=== PATIENT | female | born 1955 | race Caucasian/White ===

== ENCOUNTER → 2019-05-16 13:22 | Outpatient (CLI) | payer OTHER, SELFPAY | PROVIDERS: PCP Family Medicine | DX: Z23 Encounter for immunization (principal) | CPT/HCPCS: 90471; 90686 ==

== ENCOUNTER → 2019-09-27 14:56 | Outpatient (CLI) | payer OTHER, SELFPAY ==
--- NOTE | 2019-09-27 | DI.RAD.S_ITS ---
PROCEDURE: XR HAND RT MIN 3V INDICATIONS: RT HAND PAIN TECHNIQUE: 3 views of the hand(s) acquired. COMPARISON: None. FINDINGS: Bones: No fractures or dislocations. Carpal bones are normally aligned. No suspicious bony lesions. Mild diffuse joint narrowing with periarticular osteophyte formation. No definitive bone erosion. Soft tissues: No suspicious soft tissue calcifications. IMPRESSION: Diffuse osteoarthritic changes. Dictated by: Matteo Lunsford [facility] Interpreted: Víctor Olguin MD on 09/27/2019 at 16:14 Approved by: Víctor Olguin M.D. on 09/27/2019 at 16:29
== END ==
PROVIDERS: PCP Family Medicine; Referring Provider Family Medicine; Visit Provider Family Medicine
DX: M79.641 Pain in right hand (principal); M25.741 Osteophyte, right hand
CPT/HCPCS: 73130

== ENCOUNTER → 2020-05-23 09:10 | Outpatient (CLI) | payer OTHER, SELFPAY ==
--- NOTE | 2020-05-23 | DI.MG.S_ITS ---
BILATERAL DIGITAL SCREENING MAMMOGRAM 3D/2D WITH CAD: 05/23/2020 CLINICAL: Routine screening. Comparison is made to exams dated: 10/22/2013 mammogram, 10/13/2006 mammogram, and 07/14/2004 mammogram - [facility]. There are scattered fibroglandular elements in both breasts. Current study was also evaluated with a Computer Aided Detection (CAD) system. There is possible irregular architectural distortion in the left breast middle depth superior region seen on the mediolateral oblique view only. This is more prominent. No other significant masses, calcifications, or other findings are seen in either breast. IMPRESSION: INCOMPLETE: NEEDS ADDITIONAL IMAGING EVALUATION The possible irregular architectural distortion in the left breast is indeterminate. Additional views with possible ultrasound are recommended. This exam was interpreted at Station ID: [id number]. NOTE: For mammograms, a report in lay terms will be sent to the patient. Approximately 15% of breast malignancies will not be visualized mammographically. In the management of a palpable breast mass, a negative mammogram must not discourage biopsy of a clinically suspicious lesion. Electronically Signed By: Tima rodrigues/emilie:05/23/2020 09:35:39 letter sent: Additional Imaging Needed ACR BI-RADS Category 0: Incomplete 3340F
== END ==
PROVIDERS: PCP Family Medicine; Referring Provider Family Medicine; Visit Provider Family Medicine
DX: Z12.31 Encounter for screening mammogram for malignant neoplasm of breast (principal)
CPT/HCPCS: 77063; 77067

== ENCOUNTER → 2020-06-15 14:04 | Outpatient (CLI) | payer OTHER, SELFPAY ==
--- NOTE | 2020-06-15 14:07 | DI.MG.S_ITS ---
UNILATERAL LEFT DIGITAL DIAGNOSTIC MAMMOGRAM 3D/2D WITH ADDITIONAL VIEWS: 06/15/2020 CLINICAL: Additional evaluation requested from prior study. Comparison is made to exams dated: 05/23/2020 mammogram, 10/22/2013 mammogram, and 10/13/2006 mammogram - [facility]. There are scattered fibroglandular elements in left breast. With focal spot compression, and additional views, the area of architectural distortion seen in the left breast in the upper outer quadrant seen on screening mammography resolves. No significant masses, calcifications, or other findings are seen in the breast. IMPRESSION: NEGATIVE Resolution of screening mammography abnormality with additional views. There is no mammographic evidence of malignancy. Return to annual mammogram screening schedule is recommended. Findings and recommendations were conveyed to the patient at time of exam. This exam was interpreted at Station ID: [id number]. NOTE: For mammograms, a report in lay terms will be sent to the patient. Approximately 15% of breast malignancies will not be visualized mammographically. In the management of a palpable breast mass, a negative mammogram must not discourage biopsy of a clinically suspicious lesion. Electronically Signed By: Lilliam etienne/:06/15/2020 14:39:22 letter sent: Normal Exam ACR BI-RADS Category 1: Negative 3341F
== END ==
PROVIDERS: PCP Family Medicine; Referring Provider Family Medicine; Visit Provider Family Medicine
DX: R92.8 Other abnormal and inconclusive findings on diagnostic imaging of breast (principal)
CPT/HCPCS: 77065; G0279

== ENCOUNTER → 2020-09-10 12:17 | Outpatient (CLI) | payer OTHER, SELFPAY ==
[2020-09-10 12:59] LABS: COVID19 -Nasal RAPID Negative (Negative)
== END ==
PROVIDERS: Visit Provider Nurse Practitioner
DX: Z20.822 Contact with and (suspected) exposure to COVID-19 (principal)
CPT/HCPCS: 87635

== ENCOUNTER 2020-09-11 13:27 | Day surgery (SDC) | payer OTHER, SELFPAY ==
[2020-09-11] VITALS (11 sets, daily range): BP systolic 124–160; BP diastolic 73–93; PULSE 62–82; RESP 12–26; TEMP 36.2–36.6; O2SAT 95–98
--- NOTE | 2020-09-11 | PATH_ITS ---
[facility] Accession Number: [id number] . 01 Material submitted: . sigmoid colon - SIGMOID COLON POLYP 6MM . 02 Diagnosis: Sigmoid Colon, Polyp 6 mm, Biopsy: Tubular adenoma. MRV 09/15/2020 1339 Local . 02 Electronically signed: . Deepali Staton MD, Pathologist NPI- [id number] . 01 Gross description: . SIGMOID COLON POLYP 6MM: Received in formalin are 2 fragment(s) of garcia, soft tissue measuring 0.5 x 0.3 x 0.2 cm to 0.3 x 0.3 x 0.2 cm submitted entirely in 1 cassette(s) /QBJ 09/12/2020 0742 Local . 02 Pathologist provided ICD-10: D12.5 . 02 CPT . 380850 Performed at: 01 [facility] [address], [place], [place] [id number] MD Darinel Joel MD Phone: [phone] Performed at: 02 [facility] [place] [address] [place], [place] [id number] MD Deepali Staton MD Phone: [phone]
--- NOTE | 2020-09-11 11:56 | PM.HP.1 ---
History of Present Illness History of Present Illness Date Patient Seen: 09/11/20 Chief complaint: SDC Narrative: 65 Years Old Female seen today for consideration of a screening colonoscopy. She has never had a colonoscopy. There have been no lower GI symptoms suggesting disease such as change in bowel habits, bleeding, abdominal pain or anemia. There's been no family history of colon cancer or colon polyps. Overall health issues have been stable, including no major cardiac events for at least 6 weeks. Past Medical History: Neoplasm of unspecified behavior; bone, soft tissue & skin SPRAIN/STRAIN, FINGER IP JOINT, SHOULDER STRAIN, INITIAL ENCOUNTER SITUATIONAL STRESS Elbow pain, left HYPERTENSION Past Surgical History: Hysterectomy + right oopherectomy (1996) Cholecystectomy (01/1998) Family History: No colon cancer or colon polyps. Social History: Reviewed history from 08/29/2016 and no changes required: Marital Status: Children: Occupation: Sales Representative [employer] Household Members: Education: Alcohol drinks/day: 1/day Patient History Medical History (Updated 07/04/18 @ 10:43 by Mayr James) Fibroids (~1997) Hypertension Surgical History (Updated 07/04/18 @ 10:43 by Mary James) Anesthesia History of cholecystectomy (~1995) History of gynecologic surgery (1997) Status post laparoscopy Family & Social History Family History (Updated 07/04/18 @ 10:44 by Mary James) Father Hypertension Stroke Mother Hypertension Sister Hypertension Meds Home Medications and Allergies Home Medications Medication Instructions Recorded Confirmed Type Lactobacillus acidophilus 10,000 mmu cells PO DAILY 09/11/20 09/11/20 History [Probiotic] atenolol 25 mg PO DAILY 09/11/20 09/11/20 History lisinopril-hydrochlorothiazide 10 tab PO DAILY 09/11/20 09/11/20 History Allergies Allergy/AdvReac Type Severity Reaction Status Date / Time codeine [CODEINE] Allergy Severe Nausea Verified 09/11/20 13:39 Review of Systems Review of Systems ROS: Yes All systems reviewed with the patient and are negative except as otherwise documented Exam Narrative Exam Narrative: GENERAL: Alert and oriented, appearing stated age and in no acute distress. HEENT: Head normocephalic/atraumatic. LUNGS: Clear to ausculation bilaterally, no wheezes, rhonchi or rales. CV: Normal S1 and S2 with regular rate and rhythm, no audible murmurs, rubs or gallops. ABDOMEN: Soft, non-tender, non-distended, no organomegaly. Positive bowel sounds. EXTREMITIES: No clubbing, cyanosis, or edema. NEURO: Cranial nerves II through XII grossly intact, no focal deficits. PSYCH: Alert and oriented x 3. SKIN: No concerning lesions. Assessment & Plan Assessment & Plan narrative: 1. Screening for colon cancer Plan for colonoscopy. The nature and character of the procedure as well as anticipated results were discussed. The possibility of not completing the procedure was also discussed. Possible complications including aspiration pneumonia, bleeding, perforation and reaction to medications either for sedation or preparation and missed lesions were discussed. Questions were answered and proceeding to the colonoscopy was elected. Informed consent signed. I sincerely appreciate the referral allowing me to participate in this patient's care. Please contact me with any questions or concerns.
--- NOTE | 2020-09-11 11:57 | PM.OP.ENDO ---
Operative Date/Time/Diagnoses Date of procedure: 09/11/20 Procedure Notes SCOAP/Timeout: 2:47 p.m. Procedure in detail: ENDOSCOPIST: Ilana Patton MD Sedation RN: Cindi Rice RN Sedation start time: 2:40 p.m. Sedation end time: 3:20 p.m. PROCEDURE: Colonoscopy with biopsy INDICATIONS: 1. Screening for colon cancer MEDICATION: Levsin 0.125 mg sublingual, incremental doses of Versed and fentanyl until appropriate level sedation achieved. Narcan 0.2 mg at 3:04 p.m. with good effect. ASA CLASS: 2 CECAL WITHDRAWAL TIME: 13 minutes COMPLICATIONS: None. EXTENT OF PROCEDURE: Cecum. QUALITY OF PREP: Good with portions of liquid stool. PROCEDURE: Prior to insertion of the colonoscope, a digital rectal examination was accomplished with circumferential palpation of the distal rectal mucosa without significant findings being noted. The high-definition colonoscope was passed into the rectum in the usual fashion and advanced over to the cecum without difficulty. The ileocecal valve, appendiceal stoma, and medial wall all could be inspected and no abnormalities were seen. ASCENDING COLON: As the colonoscope was withdrawn, care was taken to expose and inspect the haustral folds and no abnormalities were seen. HEPATIC FLEXURE: Normal, no polyps, diverticula or other abnormalities. TRANSVERSE COLON: Normal, no polyps, diverticula or other abnormalities. DESCENDING COLON: Normal, no polyps, diverticula or other abnormalities. SIGMOID COLON: 6 mm polyp removed with cold biopsy forceps, hemoclip placed with excellent hemostasis. Otherwise, no diverticula or other abnormalities. RECTUM: Normal. J maneuver was produced. There was no significant perianal disease. The J maneuver was broken. The remainder of the rectum was inspected and there was no external hemorrhoid disease. The scope was withdrawn. IMPRESSION: 1. Sigmoid polyp x1, 6 mm, removed with cold biopsy forceps, hemoclip placed x1 PLAN: 1. Follow-up in clinic status post pathology results. The possibility of a missed lesion including a malignancy has been discussed with the patient previously. Potential alarm symptoms have been discussed and should be reported immediately.
[2020-09-11] MEDS: HYOSCYAMINE 0.125 MG TABLET PO (13:55)
[2020-09-11] MEDS: LACTATED RINGERS 1,000 ML 200 ML IV (14:05)
[2020-09-11] MEDS: fentaNYL 250 MCG/5 ML INJ IV (14:58)
[2020-09-11] MEDS: MIDAZOLAM 5 MG/5 ML VIAL IV (15:00)
[2020-09-11] MEDS: NALOXONE 1 MG/ML SYRINGE 2 MG IV (15:04)
--- NOTE | 2020-09-11 15:33 | SUR.PHASEI ---
Notified patient's of the need to hold patient until 5:30 p.m. due to the administration of narcan during the procedure. Assured that patient was in no distress and that procedure went well. V/U. Will notify closer to 5:30 for discharge.
--- NOTE | 2020-09-11 17:14 | SUR.PHASEII ---
Pt awake and alert. VSS. No resp depression noted 2 hours post narcan administration.
== END 2020-09-11 17:10 | disposition home or self-care (01) ==
PROVIDERS: Referring Provider Student in an Organized Health Care Education/Training Program; Visit Provider Student in an Organized Health Care Education/Training Program
PROC: 0DJD8ZZ Inspection of Lower Intestinal Tract, Via Natural or Artificial Opening Endoscopic (ICD-10-PCS; CPT 45378; principal; 2020-09-11 14:30)
DX: Z12.11 Encounter for screening for malignant neoplasm of colon (principal); I10 Essential (primary) hypertension; D12.5 Benign neoplasm of sigmoid colon
CPT/HCPCS: 45380; 45382; J2250; J2310; J3010

== ENCOUNTER 2022-01-21 20:22 | Emergency (ER) | payer OTHER, SELFPAY ==
[2022-01-21 20:38] VITALS: BP 188/89; PULSE 90; RESP 16; TEMP 36.8; O2SAT 97; BMI 31.5
[2022-01-21 20:48] LABS: Appearance Urine UA CLOUDY; Bilirubin Urine UA NEGATIVE (NEGATIVE); Color Urine UA RED; Glucose Urine UA NEGATIVE (Negative); Ketones Urine UA NEGATIVE (NEGATIVE); Leukocyte Esterase Urine UA 1+ (NEGATIVE); Nitrite Urine UA NEGATIVE (Negative); Occult Blood Urine UA 3+ (Negative); Protein Urine UA 1+ (Negative); Urobilinogen Urine UA 0.2 E.U./dL (0.2)
[2022-01-21 20:54] LABS: Bacteria Urine Moderate (10-30); Culture Indicated Urine Specimen Cultured; RBC Urine >100/HPF (0-5/HPF); Squamous Epithelial Cell Urine None Seen (0-5/HPF); WBC Urine 5-10/HPF (0-5/HPF)
--- NOTE | 2022-01-21 21:29 | DI.CT.S_ITS ---
PROCEDURE: CT KIDNEY URETER BLADDER (KUB) INDICATIONS: R flank pain eval for stone TECHNIQUE: Axial sections were acquired from the lung bases to the pubic symphysis. Coronal and sagittal reformats were performed. For radiation dose reduction, the following was used: automated exposure control, adjustment of mA and/or kV according to patient size. COMPARISON: [facility], CT, ABDOMEN W&WO CONTRAST, 06/05/2012, 11:10. FINDINGS: Image quality: Excellent. Lung bases: There is minimal subpleural scarring medially in the right lower lobe. Heart: Heart is normal in size. URINARY: Right Kidney and Ureter: There is an obstructing urinary stone measuring up to 0.6 cm within the mid right ureter with attenuation values of approximately 400-500 Hounsfield units. There is associated moderate right hydroureteronephrosis with minimal perinephric stranding. There are multiple, at least 5 additional nonobstructing stones within the right kidney with the largest measuring up to 0.7 cm. This demonstrates attenuation values of approximately 700-800 Hounsfield units. Left Kidney and Ureter: There are a few, approximately 4-5, nonobstructing left renal stones with the largest measuring up to approximately 0.3 cm. No hydronephrosis. No hydroureter. Bladder: Normal wall thickness. No stones. ABDOMEN: Liver: Noncontrast evaluation of the liver demonstrates 2 hypoattenuating mass lesions, measuring 3.0 x 3.0 cm in the right hepatic lobe and 2.6 x 2.5 cm in the left hepatic lobe. Gallbladder: Surgically absent. Biliary ducts: No biliary ductal dilatation. Pancreas: Unremarkable. Spleen: Normal in size. Adrenal Glands: No adrenal nodules. Stomach and Bowel: Stomach, small bowel loops, and colon are normal in caliber and wall thickness. No evidence of appendicitis. Peritoneum: No abnormal intraperitoneal fluid. No free air. Ventral Wall: No hernia. Abdominal Nodes: No retroperitoneal or mesenteric adenopathy by size criteria. Vessels: Aorta and inferior vena cava are normal in size. PELVIS: Pelvic Organs: Uterus is surgically absent. Pelvic Nodes: No enlarged lymph nodes. Miscellaneous: No inguinal hernias identified. Bones: Visualized osseous structures demonstrate no suspicious focal lesions. IMPRESSION: 1. Obstructing urinary stone in the mid right ureter with associated moderate right hydroureteronephrosis. 2. Demonstration of 2 hepatic mass lesions which appear similar in size compared to the prior CT which demonstrated findings consistent with cavernous hemangiomas. 3. Additional bilateral nonobstructing renal stones as described. Dictated by: Darinel Maradiaga M.D. on 01/21/2022 at 22:17 Approved by: Darinel Maradiaga M.D. on 01/21/2022 at 22:25
--- NOTE | 2022-01-21 21:29 | ED.BACK ---
HPI - Back Pain/Injury General Chief Complaint: Back Pain/Injury Stated Complaint: Lower right ABD pain Time Seen by Provider: 01/21/22 21:28 Source: patient Mode of arrival: Ambulatory Limitations: no limitations History of Present Illness HPI Narrative: Patient is a 66-year-old female who is here for evaluation of right-sided flank pain and right lower quadrant pain. He has had off and on discomfort in the right flank for the past several weeks. She states that over the past 24 hours things have gotten worse. No change with urination. No change with palpation. No history of kidney stones. No change in bowel habits. No skin rashes. No fevers. Related Data Home Medications Medication Instructions Recorded Confirmed Lactobacillus acidophilus 10 10,000 mmu cells PO DAILY 09/11/20 09/11/20 billion cell capsule (Probiotic) atenolol 25 mg tablet 25 mg PO DAILY 09/11/20 09/11/20 lisinopril 10 10 tab PO DAILY 09/11/20 09/11/20 mg-hydrochlorothiazide 12.5 mg tablet Previous Rx's Medication Instructions Recorded hydrocodone 5 mg-acetaminophen 325 1 tab PO Q4-6H PRN pain #14 tabs 01/21/22 mg tablet ondansetron 4 mg disintegrating 4 mg PO Q6H PRN nausea and 01/21/22 tablet vomiting #14 tabs tamsulosin 0.4 mg capsule (Flomax) 0.4 mg PO DAILY #14 caps 01/21/22 Allergies Allergy/AdvReac Type Severity Reaction Status Date / Time codeine [CODEINE] Allergy Severe Nausea Verified 09/11/20 13:39 Review of Systems Constitutional Constitutional: Reports system reviewed and no additional complaints, except as documented Gastrointestinal Gastrointestinal: Reports system reviewed and no additional complaints, except as documented Genitourinary Genitourinary: Reports system reviewed and no additional complaints, except as documented Integumentary/Breasts Skin/Breast: Reports system reviewed and no additional complaints, except as documented Neurologic Neurologic: Reports system reviewed and no additional complaints, except as documented Hematologic/Lymphatic Hematologic/Lymphatic: Reports system reviewed and no additional complaints, except as documented Patient History Medical History Fibroids (~1997) Hypertension Surgical History (Updated 07/04/18 @ 10:43 by Mary James) Anesthesia History of cholecystectomy (~1995) History of gynecologic surgery (1997) Status post laparoscopy Family History (Updated 07/04/18 @ 10:44 by Mary James) Father Hypertension Stroke Mother Hypertension Sister Hypertension Social History household members: spouse Smoking Status: Never smoker Smoking Status: Never smoker alcohol intake frequency: a few times a week Substance Use Type: does not use Exam Initial Vital Signs Initial Vital Signs: Vital Signs Temperature 98.3 F 01/21/22 20:38 Pulse Rate 90 01/21/22 20:38 Respiratory Rate 16 01/21/22 20:38 Blood Pressure 188/89 H 01/21/22 20:38 Pulse Oximetry 97 01/21/22 20:38 Oxygen Delivery Method 01/21/22 20:38 Const General: cooperative and healthy appearing HENMT Head: normal to inspection Resp Effort & Inspection: normal respiratory effort Cardio Rate: regular rate GI Inspection: normal to inspection Back/Spine/Pelvis Back: No CVA tenderness Skin General: no rashes or lesions noted Neuro General: patient alert, patient awake and moves all extremities Extrem General: normal to inspection Psych Appearance: grossly normal Course Orders Ordered: ED Orders 01/21/22 20:30 Urinalysis and Microscopic Stat Urine Culture Stat 01/21/22 20:45 Basic Metabolic Panel Stat Complete Blood Count AUTO DIFF Stat 01/21/22 21:29 CT kidney ureter bladder (KUB) Stat Discontinued Medications Hydrocodone Bitart/Acetaminophen (Hydrocodone/Acet 5/325 Prepack) 1 bottle MISC SEEINSTR ONE Stop: 01/21/22 23:16 Last Admin: 01/21/22 23:28 Dose: 1 bottle Documented By: AT Ketorolac Tromethamine (Ketorolac 30 Mg/Ml Vial) 30 mg IV NOW ONE Stop: 01/21/22 21:40 Last Admin: 01/21/22 21:51 Dose: 30 mg Documented By: AT Ondansetron HCl (Ondansetron 4 Mg Odt Prepack) 1 bottle MISC SEEINSTR ONE Stop: 01/21/22 23:16 Last Admin: 01/21/22 23:28 Dose: 1 bottle Documented By: AT Tamsulosin HCl (Tamsulosin 0.4 Mg Capsule) 0.4 mg PO NOW ONE Stop: 01/21/22 23:16 Last Admin: 01/21/22 23:28 Dose: 0.4 mg Documented By: AT Vital Signs Vital signs: Vital Signs - 8 hr 01/21/22 20:38 01/21/22 22:14 Temperature 98.3 F Pulse Rate 90 75 Respiratory Rate 16 18 Blood Pressure 188/89 H 160/89 H Pulse Oximetry 97 99 Oxygen Delivery Method Room Air Room Air MDM - Back Pain/Injury Lab Data Attestation: I reviewed the patient's lab results. Result diagrams: 01/21/22 20:45 01/21/22 20:45 Labs: Lab Results 01/21/22 01/21/22 01/21/22 Range/Units 20:30 20:45 20:45 WBC 9.1 (4.5-11.0) X10^3/uL RBC 4.17 (4.0-5.2) X10^6/uL Hgb 12.6 (12.0-16.0) g/dL Hct 37.4 (36-46) % MCV 89.7 (80-100) fL MCH 30.3 (26-34) PG MCHC 33.8 (30-36) % RDW 12.6 (11.6-14.8) % Plt Count 261 (150-400) X10^3/uL Neut % (Auto) 74.2 (50-75) % Lymph % (Auto) 16.3 L (25-40) % [place] % (Auto) 6.9 (3-14) % Eos % (Auto) 2.1 (2-4) % Baso % (Auto) 0.5 (0-2) % Neut # (Auto) 6700 (4789-4225) /uL Lymph # (Auto) 1500 (7478-4711) /uL [place] # (Auto) 600 (0-900) /uL Eos # (Auto) 200 (0-450) /uL Baso # (Auto) 0 (0-100) /uL Sodium 136 L (137-145) mmol/L Potassium 3.8 (3.4-5.1) mmol/L Chloride 101 (98-107) mmol/L Carbon Dioxide 28 (22-32) mmol/L BUN 22 H (7-17) mg/dL Creatinine 0.56 (0.52-1.04) mg/dL Estimated GFR > 60 (>60) mL/min BUN/Creatinine Ratio 39.3 H (6-22) Glucose 126 H (80-110) mg/dL Calcium 9.7 (8.4-10.2) mg/dL Urine Color Red Urine Appearance Cloudy Urine pH 6.0 (4.5-8.0) Ur Specific [place] 1.020 (1.000-1.035) Urine Protein 1+ H (Negative) Urine Glucose (UA) Negative (Negative) g/dL Urine Ketones Negative (NEGATIVE) Urine Occult Blood 3+ H (Negative) Urine Nitrate Negative (Negative) Urine Bilirubin Negative (NEGATIVE) Urine Urobilinogen 0.2 (0.2) E.U./dL Ur Leukocyte Esterase 1+ H (NEGATIVE) Urine RBC >100/hpf H (0-5/HPF) Urine WBC 5-10/hpf H (0-5/HPF) Ur Squamous Epith Cells None seen (0-5/HPF) Urine Bacteria Moderate (10-30) H (None) Ur Culture Indicated? Specimen cultured Imaging Data CT scan - abdomen/pelvis: Radiologist's Impression: [place] [address] CT Scan Report Signed Patient: Alicia Holman MR#: [id number] : 1955 Acct:[id number] Age/Sex: 66 / F Date of Service: 01/21/22 Loc: ED Accession Number: [id number] ?? Procedure: CT kidney ureter bladder (KUB) Ordering Provider: Huan Rendon D.O. PROCEDURE:? CT KIDNEY URETER BLADDER (KUB) ? INDICATIONS:? R flank pain eval for stone ? TECHNIQUE:? Axial sections were acquired from the lung bases to the pubic symphysis.? Coronal and sagittal reformats were performed.? For radiation dose reduction, the following was used: ?automated exposure control, adjustment of mA and/or kV according to patient size.? ? COMPARISON:? [facility], CT, ABDOMEN W&WO CONTRAST, 06/05/2012, 11:10. ? FINDINGS:? Image quality:? Excellent.? ? Lung bases:? There is minimal subpleural scarring medially in the right lower lobe.? Heart:? Heart is normal in size. ? URINARY: Right Kidney and Ureter: ? There is an obstructing urinary stone measuring up to 0.6 cm within the mid right ureter with attenuation values of approximately 400-500 Hounsfield units.? There is associated moderate right hydroureteronephrosis with minimal perinephric stranding.? There are multiple, at least 5 additional nonobstructing stones within the right kidney with the largest measuring up to 0.7 cm.? This demonstrates attenuation values of approximately 700-800 Hounsfield units. ? Left Kidney and Ureter: ? There are a few, approximately 4-5, nonobstructing left renal stones with the largest measuring up to approximately 0.3 cm. No hydronephrosis.? No hydroureter. ? Bladder:? Normal wall thickness. No stones. ? ? ? ABDOMEN: Liver:? Noncontrast evaluation of the liver demonstrates 2 hypoattenuating mass lesions, measuring 3.0 x 3.0 cm in the right hepatic lobe and 2.6 x 2.5 cm in the left hepatic lobe. Gallbladder:? Surgically absent. Biliary ducts:? No biliary ductal dilatation.? ? Pancreas:? Unremarkable.? ? Spleen:? Normal in size.? ? Adrenal Glands:? No adrenal nodules.? ? ? Stomach and Bowel:? Stomach, small bowel loops, and colon are normal in caliber and wall thickness.? No evidence of appendicitis.? Peritoneum:? No abnormal intraperitoneal fluid.? No free air.? ? Ventral Wall: ? No hernia.? Abdominal Nodes:? No retroperitoneal or mesenteric adenopathy by size criteria.? Vessels:? Aorta and inferior vena cava are normal in size.? ? PELVIS: Pelvic Organs:? Uterus is surgically absent.? ? Pelvic Nodes: No enlarged lymph nodes.? Miscellaneous: No inguinal hernias identified. ? ? ? Bones:? Visualized osseous structures demonstrate no suspicious focal lesions. IMPRESSION:? ? 1. Obstructing urinary stone in the mid right ureter with associated moderate right hydroureteronephrosis. ? 2. Demonstration of 2 hepatic mass lesions which appear similar in size compared to the prior CT which demonstrated findings consistent with cavernous hemangiomas. ? 3. Additional bilateral nonobstructing renal stones as described. ? Dictated by: Darinel Maradiaga M.D. on 01/21/2022 at 22:17 ? ? Approved by: Darinel Maradiaga M.D. on 01/21/2022 at 22:25?? MDM Narrative Medical decision making narrative: Improvement in symptoms after Toradol. Kidney function is unremarkable. CT scan shows right-sided mid ureter stone with associated hydro. She also has multiple kidney stones. Unsure if the symptoms over the past couple weeks have been her passing stones or if it is related to the stone seen today. Will treat symptomatically. Patient is also given instructions for follow-up with Urology. No indication for emergent urologic consultation. Patient was given return precautions and follow-up instructions. She expressed understanding and agreement. Discharge Plan Departure Patient Disposition: Home Clinical Impression: Bilateral kidney stones, Right ureteral calculus Instructions: Kidney Stones -- Adult Activity Restrictions/Additional Instructions: Continue to take all of your medications as directed. On Monday morning contacted the urologist office to discuss follow-up. Return to the emergency department for any new or worsening symptoms like we discussed. Prescriptions: New tamsulosin [Flomax] 0.4 mg capsule 0.4 mg PO DAILY Qty: 14 0RF hydrocodone-acetaminophen 5-325 mg tablet 1 tab PO Q4-6H PRN (Reason: pain) Qty: 14 0RF ondansetron 4 mg tablet,disintegrating 4 mg PO Q6H PRN (Reason: nausea and vomiting) Qty: 14 0RF No Action atenolol 25 mg tablet 25 mg PO DAILY lisinopril-hydrochlorothiazide 10-12.5 mg tablet 10 tab PO DAILY Probiotic 10 billion cell Capsule 10,000 mmu cells PO DAILY Referrals: Michel Adair MD [Physician] - Miscellaneous,MD Jane [Primary Care Provider] - Visit Report Forms: Patient Portal/API
[2022-01-21 21:35] LABS: Add Manual Diff / Slide Review NO; Basophils Absolute Auto 0 /uL (0-100); Basophils Percent Auto 0.5 % (0-2); Eosinophils Absolute Auto 200 /uL (0-450); Eosinophils Percent Auto 2.1 % (2-4); Hematocrit 37.4 % (36-46); Hemoglobin 12.6 g/dL (12.0-16.0); Lymphocytes Absolute Auto 1500 /uL (1100-4500); Lymphocytes Percent Auto 16.3 % (25-40); Mean Corpuscular HGB Conc 33.8 % (30-36); Mean Corpuscular Hemoglobin 30.3 PG (26-34); Mean Corpuscular Volume 89.7 fL (80-100); Monocytes Absolute Auto 600 /uL (0-900); Monocytes Percent Auto 6.9 % (3-14); Neutrophils Absolute Auto 6700 /uL (1500-7000); Neutrophils Percent Auto 74.2 % (50-75); Platelet Count 261 X10^3/uL (150-400); Red Blood Cell Count 4.17 X10^6/uL (4.0-5.2); Red Cell Distribution Width 12.6 % (11.6-14.8); White Blood Cell Count 9.1 X10^3/uL (4.5-11.0)
[2022-01-21 21:39] LABS: BUN Creatinine Ratio 39.3 (6-22); Blood Urea Nitrogen 22 mg/dL (7-17); Calcium 9.7 mg/dL (8.4-10.2); Carbon Dioxide 28 mmol/L (22-32); Chloride 101 mmol/L (98-107); Estimated Glomerular Filt Rate > 60 mL/min (>60); Glucose 126 mg/dL (80-110); HEMOLYSIS < 15 (0-50); Potassium 3.8 mmol/L (3.4-5.1); Sodium 136 mmol/L (137-145)
[2022-01-21] MEDS: KETOROLAC 30 MG/ML VIAL IV (21:51)
[2022-01-21 22:14] VITALS: BP 160/89; PULSE 75; RESP 18; O2SAT 99
[2022-01-21] MEDS: TAMSULOSIN 0.4 MG CAPSULE PO (23:28)
[2022-01-21] MEDS: HYDROCODONE/ACET 5/325 PREPACK 1 BOTTLE MISC (23:28)
[2022-01-21] MEDS: ONDANSETRON 4 MG ODT PREPACK 1 BOTTLE MISC (23:28)
== END 2022-01-21 23:35 | disposition home or self-care (01) ==
PROVIDERS: Emergency Provider Emergency Medicine
DX: N20.0 Calculus of kidney (principal); N20.1 Calculus of ureter
CPT/HCPCS: 36415; 74176; 80048; 81001; 85025; 87086; 96374; 99284; J1885

== ENCOUNTER → 2022-11-24 13:33 | Outpatient (CLI) | payer OTHER, SELFPAY ==
--- NOTE | 2022-12-01 17:14 | DIAB.MNT ---
Initial Diabetes Medical Nutrition Therapy Assessment Name: Alicia Holman (Danyell) Date: 11/24/22 Time: 220-330p Dx: Type II Diabetes Provider: Supa Danyell presents today for initial Dm visit newly dx with T2DM, HgA1c of 6.5% 09/2022. States most of her questions today are about nutrition, ie weight loss, carb amt, label reading, portions. Sees PCP in January for follow-up. Endorses a lot of family loss and medical concerns since 2018. States she has read a few books on DM. Interested in DSME classes in December. States she has been experimenting with different low carb recipes, ie baked cheese for a cracker Diet Recall: 630a: coffee x 4c with splenda noon: HB eggs, celery, yogurt x 0.5c, cram cheese 2 oz 730p: chicken, lettuce, tomatoes, cheese, HB egg, celery, black olives, carrot, dressing OR meatloaf with salad or veggie Beverages: water, 2 ETOH servings , sparkling water Anthropometrics: Ht: 5'9.5 Wt: 219# reported Weight history: Down from 231# reported Physical Activity: Walking 4 mi (1.5-2 hours) per day since diagnosis, just purchased resistance bands. Self-Monitoring Blood Glucose: Started last month. Checking FBG mostly, was 110-135mg/dl but now improved to 104-120mg/dl. Recent FB, 119, 104, 115, 171 (retest 125), 111, 109 Diabetes Medications: 500mg Metformin XR Pertinent Labs: 09/2022 HgA1c: 6.5% Cholesterol 179 HDL 53 TG 130 LDL 100 Past Medical History: (Last Reviewed 01/22/22 @ 04:10 by Huan Rendon DO) Fibroids (~1997) Hypertension Nutrition Rx: Carbohydrates: Meal:30g Snack:15-30g Nutrition Diagnosis: - Food and nutrition related knowledge deficit r/t new dx T2DM aeb hgA1c 6.5% and pt report and diet recall Intervention: This participant was very receptive. Provided appropriate educational handouts. Discussed the following topics: Completed intake assessment. Discussed barriers to care. Pathophysiology of T2DM HgA1c, its correlation to blood glucose numbers, and rationale for goal Importance of self-monitoring, how often, and when to check. Suggested checking at different times to evaluate meals Plate Method, impact of macronutrients on blood sugar, meal timing, carbohydrate counting, pairing macronutrients and spreading out carbohydrates for better blood glucose management Recommended servings for carbohydrates at meals and snacks Heart health nutrition label reading, how weight loss impacts insulin resistance Role of physical activity and following provider guidelines for safety Created SMART goals for patient self-care and success. Goals: Check a few postprandial readings Keep carbs at meals around 30g (45g max) Start resistance training Follow-up: KALPANA GUTIÉRREZ follow-up December for DSME classes and 1:1 follow-up. Lea Wilson RDN, [facility] Certified Diabetes Care and [facility] Hosp[facility] P: [phone] Thank you for this referral
== END ==
PROVIDERS: Absent Provider Family Medicine; Family Provider Family Medicine; PCP Family Medicine; Referring Provider Family Medicine; Visit Provider Family Medicine
DX: E11.9 Type 2 diabetes mellitus without complications (principal); Z79.84 Long term (current) use of oral hypoglycemic drugs; Z71.3 Dietary counseling and surveillance
CPT/HCPCS: 97802

== ENCOUNTER → 2022-12-13 09:23 | Outpatient (CLI) | payer OTHER, SELFPAY ==
--- NOTE | 2022-12-13 17:05 | DIAB.FU ---
Diabetes Education Class Series: Diabetes and Nutrition Name: Alicia Holman (Danyell) Date:12/13/22 Time: 930a-11p Danyell attended class 1 of 3 for DSME. States she has been working on walking more. She seemed receptive to class info and participated. Class topics covered: ? Debunk nutrition myths and discuss how to sustain healthy eating long-term through moderation and variety ? Define macronutrients and determine their impact on blood sugars ? Discuss macronutrient pairing, Plate Method, and carb counting ? Review general recommendations for carbohydrates ? Discuss the role of fiber in diabetes and provide examples of sources ? Review heart health nutrition: fats, fiber, and sodium Follow-up: Diabetes Physiology and Medication Class in one week Lea Wilson RDN, [facility] Registered Dietitian, Certified Diabetes Care and Tray Worker [phone] [email or web address]
== END ==
PROVIDERS: Family Provider Family Medicine; PCP Family Medicine; Referring Provider Family Medicine; Visit Provider Family Medicine
DX: E11.9 Type 2 diabetes mellitus without complications (principal); Z71.3 Dietary counseling and surveillance
CPT/HCPCS: G0109

== ENCOUNTER → 2022-12-20 09:10 | Outpatient (CLI) | payer OTHER, SELFPAY ==
--- NOTE | 2022-12-22 13:54 | DIAB.FU ---
Diabetes Education Class Series: Diabetes Physiology and Medications Name: Alicia Holman (Danyell) Date: 12/20/22 Time: 930-1100a Class topics covered: ? Practice label reading ? Discuss the role of fiber in diabetes and provide examples of sources ? Review heart health nutrition: fats, fiber, and sodium ? Determine recommendations for grocery shopping and eating out ? Discuss alcohol recommendations ? Review the role of substitute sugars in diabetes management ? Diabetes pathophysiology ? Discuss different types of diabetes ? Review criteria for diagnosing diabetes ? Review HgA1c measurement and associated blood sugars ? Review blood sugar monitoring safety, technique, and goals ? Discuss ways to reduce complications associated with diabetes, includes microvascular and macrovascular complications ? Review diabetes medications types, action, and side effects Follow-up: Diabetes Lifestyle and Ongoing Support Class next week Lea Wilson RDN, [facility] Registered Dietitian, Certified Diabetes Care and [employer] St[employer] [phone] [email or web address]
== END ==
PROVIDERS: Family Provider Family Medicine; PCP Family Medicine; Referring Provider Family Medicine; Visit Provider Family Medicine
DX: E11.9 Type 2 diabetes mellitus without complications (principal); Z71.3 Dietary counseling and surveillance
CPT/HCPCS: G0109

== ENCOUNTER → 2022-12-27 09:09 | Outpatient (CLI) | payer OTHER, SELFPAY ==
--- NOTE | 2023-01-11 16:57 | DIAB.FU ---
Follow-up Diabetes Education Assessment Name: Alicia Holman (Danyell) Date: 12/27/22 Time: 399-1690a Danyell reports finding new low carb recipes with success. Also allowing some connie with choosing foods she enjoys in smaller portions. Working on meal prep to be more successful. Class topics covered: ? Discuss ways to reduce complications associated with diabetes, includes microvascular and macrovascular complications ? Review diabetes medications types, action, and side effects ? Health care visits recommended for people with T2DM ? Immunization recommended for people with T2DM ? Discuss the difference between physical activity and exercise ? Determine physical activity benefits and impact on diabetes ? Review physical activity recommendations and safety ? Discuss emergency preparedness ? Discuss diabetes and emotions (diabetes burnout/distress) ? Review and practice stress management techniques ? Review support groups and community resources ? Discuss the role of family support in diabetes care ? What is going well? Challenges of diabetes? ? Set SMART goals Follow-up 1:1 with [facility] in 2-4 weeks. Lea Wilson RDN, [facility] Certified Diabetes Care and Senior Software Developer P: [phone] Thank you for this referral
== END ==
PROVIDERS: Family Provider Family Medicine; PCP Family Medicine; Referring Provider Family Medicine; Visit Provider Family Medicine
DX: E11.9 Type 2 diabetes mellitus without complications (principal); Z71.3 Dietary counseling and surveillance
CPT/HCPCS: G0109

== ENCOUNTER → 2023-01-10 09:13 | Outpatient (CLI) | payer OTHER, SELFPAY ==
--- NOTE | 2023-01-10 10:29 | DIAB.MNTFU ---
Follow-up Diabetes Medical Nutrition Therapy Assessment Name: Alicia Holman (Danyell) Date: 01/10/23 Time: 930-1020a Dx: Type II Diabetes Provider: Supa Danyell presents for follow-up DM visit. She has completed the DSME classes. States she is reading food labels and choosing low carb recipes. Some constipation with lower carb options, though does enjoy some higher fiber foods, ie veggies, berries, pb, avocado. H/o kidney stones. Conscious of Na intake. Sometimes low on water intake with working outside and forgetting to drink water. Has questions about Metformin and if she needs to continue taking. Discussed benefits of Metformin and encouraged discussion with provider. Plans to see PCP in January for follow-up DM visit and labs. Diet Recall: 10a HB egg 1p: PB with thin corn cakes and plain yogurt with berries 4p: low CHO dessert: sf jello with sf whip OR PB with yogurt and keshia 7p: veggies, burger say Anthropometrics: Ht: 5'11 Wt: 205# reported Weight history: Down from 219# reported 6 weeks ago Physical Activity: Walking 2-4 mi daily, incorporating hand weights 3x per week. Self-Monitoring Blood Glucose: Checking FBG. All in goal. States she has been aiming for <100mg/dl and feeling frustrated, however her FBG are looking well in goal most days per ADA. For tighter guidelines she is very close to being in goal for AACE guidelines (<110mg/dl). FB, 111, 115, 130, 116, 117, 121 (mg/dL) Diabetes Medications: 500mg Metformin ER Pertinent Labs: 09/2022 HgA1c: 6.5% Cholesterol 179 HDL 53 TG 130 LDL 100 Past Medical History: (Last Reviewed 01/22/22 @ 04:10 by Huan Rendon DO) Fibroids (~1997) Hypertension Nutrition Rx: Carbohydrates: Meal:30g Snack:15-30g Nutrition Diagnosis: - Food and nutrition related knowledge deficit r/t new dx T2DM aeb hgA1c 6.5% and pt report and diet recall- improved - Predicted inadequate fluid intake r/t forgetting water during the day when working outside aeb pt report- new Intervention: This participant was very receptive. Provided appropriate educational handouts. Discussed the following topics: Blood sugar review and trends. ADA vs AACE guidelines. Overall, improvement in lifestyle change, BG and diet. Fiber review: heart health and GI health Low carb diets and fiber Fiber options she enjoys Medication review: action of Metformin Hydration benefits and recs Physical activity plan and progress Created SMART goals for patient self-care and success. Goals: Check a few postprandial readings- in progress Keep carbs at meals around 30g (45g max)- met Start resistance training - met Take water bottle outside with you when gardening- new Follow-up: KALPANA GUTIÉRREZ follow-up prn. Overall, Danyell is managing her DM well. She has made significant changes in lifestyle, reflected in both BG and weight change. Encouraged her to call or message with any questions or follow-up needs. She agreed to this plan. Lea Wilson RDN, [facility] Certified Diabetes Care and Mobility Manager P: [phone] Thank you for this referral
== END ==
PROVIDERS: Family Provider Family Medicine; PCP Family Medicine; Referring Provider Family Medicine; Visit Provider Family Medicine
DX: E11.9 Type 2 diabetes mellitus without complications (principal); Z79.84 Long term (current) use of oral hypoglycemic drugs; Z71.3 Dietary counseling and surveillance
CPT/HCPCS: 97803

== ENCOUNTER → 2023-03-23 10:54 | Outpatient (CLI) | payer OTHER, SELFPAY ==
--- NOTE | 2023-03-23 | DI.RAD.S_ITS ---
PROCEDURE: XR FOOT RT MIN 3V INDICATIONS: Pain in right foot TECHNIQUE: 3 views of the foot were acquired. COMPARISON: None. FINDINGS: Bones: No fractures or dislocations. No suspicious bony lesions. Mild osteoarthritic changes at the 1st tarsometatarsal joint, 1st metatarsophalangeal joint and multiple interphalangeal joints. Soft tissues: No tibiotalar joint effusion. Achilles tendon appears normal. IMPRESSION: Mild osteoarthritis. Dictated by: Miley Wood M.D. on 03/23/2023 at 12:13 Approved by: Miley Wood M.D. on 03/23/2023 at 12:14
== END ==
PROVIDERS: Family Provider Family Medicine; PCP Family Medicine; Referring Provider Family Medicine; Visit Provider Family Medicine
DX: M19.071 Primary osteoarthritis, right ankle and foot (principal); M79.671 Pain in right foot
CPT/HCPCS: 73630

== ENCOUNTER → 2023-04-19 07:43 | Outpatient (CLI) | payer OTHER, SELFPAY ==
--- NOTE | 2023-04-19 | DI.MG.S_ITS ---
BILATERAL DIGITAL SCREENING MAMMOGRAM 3D/2D WITH CAD: 04/19/2023 CLINICAL: Routine screening. Comparison is made to exams dated: 05/23/2020 mammogram and 10/22/2013 mammogram - [facility]. Both breasts are heterogeneously dense, which may obscure small masses (category c / 51-75% glandular tissue). Current study was also evaluated with a Computer Aided Detection (CAD) system. There are benign calcifications in both breasts. No significant masses, calcifications, or other findings are seen in either breast. There has been no significant interval change. IMPRESSION: BENIGN There is no mammographic evidence of malignancy. A 1 year screening mammogram is recommended. Based on the Tyrer Cuzick model (a risk assessment model) the patient's lifetime risk is 8.9% and her 10 year risk is 4.5%. According to the ACR, ACS, and NCCN guidelines, an annual breast MRI exam along with mammogram is recommended if the patient's lifetime risk is 20% or greater. This exam was interpreted at Station ID: [id number]. NOTE: For mammograms, a report in lay terms will be sent to the patient. Approximately 15% of breast malignancies will not be visualized mammographically. In the management of a palpable breast mass, a negative mammogram must not discourage biopsy of a clinically suspicious lesion. Electronically Signed By: Tima rodrigues/emilie:04/23/2023 14:15:09 letter sent: Normal Exam ACR BI-RADS Category 2: Benign Finding(s) 3342F
== END ==
PROVIDERS: Family Provider Family Medicine; PCP Family Medicine; Referring Provider Family Medicine; Visit Provider Family Medicine
DX: Z12.31 Encounter for screening mammogram for malignant neoplasm of breast (principal)
CPT/HCPCS: 77063; 77067

== ENCOUNTER → 2024-11-22 07:51 | Outpatient (CLI) | payer OTHER, SELFPAY ==
--- NOTE | 2024-11-22 07:52 | DI.MG.S_ITS ---
MM screening mammo BI: 11/22/2024. BI-RADS: 2 CLINICAL: 69-year old female for bilateral screening mammogram. Tyrer-Cuzick lifetime risk of 12.1%. No personal or first-degree family history of breast cancer. The patient had a prior right breast biopsy. PRIOR EXAMS 04/19/2023, 06/15/2020, 05/23/2020. MAMMOGRAPHY TECHNIQUE: 2D and 3D (tomosynthesis) digital mammographic views obtained, with additional images as needed for full coverage. Current study was also evaluated with a Computer Aided Detection (CAD) system. DENSITY C. The breasts are heterogeneously dense, which may obscure small masses. MAMMOGRAPHY FINDINGS Bilateral: Benign-appearing calcifications noted. There are no suspicious masses, calcifications, or other findings in the breast. No significant change from comparison. IMPRESSION: * No evidence of malignancy with benign findings. RECOMMENDATIONS Bilateral * Annual screening mammography. OVERALL ASSESSMENT CATEGORY BI-RADS-2: Benign. The [employer] recommends annual screening mammography beginning at age 40 for women with average risk of breast cancer. ELECTRONICALLY SIGNED: Raissa Rodriguez M.D. on 11/22/2024 at 09:51:12 AM PT Interpreting Station ID: [id number]
== END ==
PROVIDERS: Family Provider Family Medicine; PCP Family Medicine; Referring Provider Family Medicine; Visit Provider Family Medicine
DX: Z12.31 Encounter for screening mammogram for malignant neoplasm of breast (principal); R92.333 Mammographic heterogeneous density, bilateral breasts
CPT/HCPCS: 77063; 77067